=== PATIENT | female | born 2000 | race Hispanic/Latino ===

== ENCOUNTER 2023-12-10 09:09 | Observation (INO) | payer BC ==
[~2023-12-10] VITALS: Ht 144.8 cm; Wt 41.8 kg
[2023-12-10 09:39] LABS: HEMATOCRIT 32.3 % (36-48); MEAN CORPUSCULAR HEMOGLOBIN 21.3 pg (27.0-33.0); MEAN CORPUSCULAR HGB CONC 30.3 g/dL (32.0-36.0); MEAN CORPUSCULAR VOLUME 70.2 fL (80-100); PLATELET COUNT (AUTO) 388 K/uL (130-400); RED CELL DISTRIBUTION WIDTH 15.2 % (11.0-15.5); WHITE BLOOD COUNT (AUTO) 10.2 K/uL (4.8-10.8)
[2023-12-10 09:51] LABS: CREATININE 0.7 mg/dL (0.5-1.0); POTASSIUM 3.6 mmol/L (3.5-5.1)
[2023-12-10 09:55] LABS: ALBUMIN 3.7 g/dL (3.5-5.0); BILIRUBIN,DIRECT 0.1 mg/dL (0.0-0.3); BILIRUBIN,TOTAL 0.5 mg/dL (0.2-1.0); TOTAL PROTEIN, SERUM 8.1 g/dL (6.0-8.3)
[2023-12-10] MEDS ORDERED: ACETAMINOPHEN 325 MG TAB PO PRN (10:30)
[2023-12-10] MEDS ORDERED: ONDANSETRON 4MG INJ IVP PRN (10:30)
[2023-12-10] MEDS ORDERED: DIPHENHYDRAMINE HCL 25 MG CAPSULE PO PRN (10:30)
[2023-12-10] MEDS ORDERED: GUAIFENESIN-DM 200/20 MG 10 ML PO PRN (10:30)
[2023-12-10] MEDS: DEXTROSE 5 %-0.45 % NACL 1,000 ML IV SCH (10:43)
[2023-12-10] MEDS: MAG/ALUM/SIMETH 30 ML UDCUP PO PRN (11:06)
[2023-12-10 11:43] VITALS: O2SAT 99
[2023-12-10 12:25] VITALS: BP 121/63; PULSE 77; RESP 16
[2023-12-10 16:48] VITALS: BP 122/84; PULSE 78; RESP 16
[2023-12-10 20:00] VITALS: BP 129/71; PULSE 81; RESP 17
[2023-12-10] MEDS: FAMOTIDINE 20MG TAB PO SCH (21:47)
[2023-12-11] VITALS (19 sets, daily range): BP systolic 90–133; BP diastolic 54–83; PULSE 69–92; RESP 15–19
[2023-12-11 05:50] LABS: MEAN CORPUSCULAR HEMOGLOBIN 21.3 pg (27.0-33.0); MEAN CORPUSCULAR HGB CONC 30.3 g/dL (32.0-36.0); MEAN CORPUSCULAR VOLUME 70.2 fL (80-100); RED BLOOD CELL COUNT(AUTO) 4.13 MIL/uL (4.00-5.50); RED CELL DISTRIBUTION WIDTH 15.4 % (11.0-15.5); WHITE BLOOD COUNT (AUTO) 8.2 K/uL (4.8-10.8)
[2023-12-11 06:05] LABS: CREATININE 0.6 mg/dL (0.5-1.0); POTASSIUM 3.9 mmol/L (3.5-5.1)
[2023-12-11] MEDS ORDERED: PROPOFOL 10 MG/ML 20ML VIAL IV ONE (07:36)
[2023-12-11] MEDS: PANTOPRAZOLE 40 MG/VIAL IVP SCH (10:44)
== END 2023-12-11 14:45 | disposition home or self-care (01) ==
LOC: EDH 09:09 → EDHIP 09:20 → 3BH 11:26
PROVIDERS: ADMIT Internal Medicine; ATTEND Internal Medicine
DX: K31.89 Other diseases of stomach and duodenum (principal); K21.00 Gastro-esophageal reflux disease with esophagitis, without bleeding; K29.50 Unspecified chronic gastritis without bleeding; R09.2 Respiratory arrest; R11.2 Nausea with vomiting, unspecified; R10.13 Epigastric pain; Z79.899 Other long term (current) drug therapy
CPT/HCPCS: 96361 ×2; 80076; 80048 ×2; 84703; 85027 ×2; 87338; 36415 ×2; 74240; 71045; 96374; 86850; 86900; 86901; 88305; 88312; 43239; G0378 ×28; G0379; J7042; A4620; J2704; A4215; A4223; A4222; 96360; C9113; J3490